=== PATIENT | female | born 1950 | race African-American/Black ===

== ENCOUNTER 2022-05-13 03:58 | Emergency (ER) | payer OTHER ==
[~2022-05-13] VITALS: Ht 170.2 cm; Wt 77.0 kg
[2022-05-13 06:18] LABS: BASOPHILS % 0.4 % (0.0-2.0); EOSINOPHILS % 0.5 % (0.0-5.0); HEMATOCRIT. 39.2 % (36.0-48.0); LYMPHOCYTES % 22.4 % (20.0-50.0); MEAN CORPUSCULAR HEMOGLOBIN 28.4 pg (28.0-32.0); MEAN CORPUSCULAR VOLUME 85.8 fL (81.0-99.0); MEAN PLATELET VOLUME 9.6 fl (7.4-10.4); MONOCYTES % 5.4 % (2.0-8.0); NEUTROPHILS % 71.3 % (40.0-76.0); PLATELET 169 x1000/uL (130-400); RED BLOOD CELL COUNT 4.57 mill/uL (4.2-5.4); RED CELL DISTRIBUTION WIDTH 13.6 % (11.6-14.6)
[2022-05-13 06:26] LABS: CHLORIDE 107 mEq/L (98-107)
[2022-05-13 06:27] LABS: PROTHROMBIN TIME 10.9 sec (9.6-11.0)
[2022-05-13 06:42] LABS: ETHANOL BLOOD < 10 mg/dL
[2022-05-13] MEDS ORDERED: IOHEXOL-350 100 ML BOTTLE ONE (07:45)
[2022-05-13 07:58] LABS: CLARITY URINE CLEAR (CLEAR); COLOR URINE YELLOW (YELLOW); KETONES URINE NEGATIVE (NEGATIVE); LEUKOCYTE ESTERASE URINE NEGATIVE (NEGATIVE); NITRITE URINE NEGATIVE (NEGATIVE); OCCULT BLOOD URINE NEGATIVE (NEGATIVE); PROTEIN URINE NEGATIVE (NEGATIVE); SPECIFIC GRAVITY URINE 1.007 (1.005-1.030); UROBILINOGEN URINE 0.2 E.U./dL (0.2-1.0)
[2022-05-13 08:24] LABS: *AMPHETAMINES SCREEN URINE NEGATIVE (NEGATIVE); *BARBITURATES SCREEN URINE NEGATIVE (NEGATIVE); *BENZODIAZEPINES SCREEN URINE NEGATIVE (NEGATIVE); *COCAINE SCREEN URINE NEGATIVE (NEGATIVE); CANNABINOID URINE SCREEN NEGATIVE (NEGATIVE); METHADONE URINE SCREEN NEGATIVE (NEGATIVE); OPIATES URINE SCREEN NEGATIVE (NEGATIVE); PHENCYCLIDINE URINE SCREEN NEGATIVE (NEGATIVE)
[2022-05-13 08:30] VITALS: BP 157/79
[2022-05-13] MEDS ORDERED: DIAZEPAM 5 MG/ML 2ML CPJ IV ONE (09:00)
[2022-05-13] MEDS ORDERED: CLOPIDOGREL 75MG TABLET PO NR (09:15)
[2022-05-13] MEDS ORDERED: ASPIRIN 325MG EC TABLET PO NR (09:15)
[2022-05-13] MEDS ORDERED: MIDAZOLAM HCL 2 MG/2 ML VIAL IV ONE ×2 (09:15→10:00)
[2022-05-13] MEDS ORDERED: ATORVASTATIN CALCIUM 40MG TABLET PO NR (09:15)
[2022-05-13] MEDS ORDERED: BENZTROPINE MESYLATE 1 MG/ML 2ML VIAL IM ONE (12:30)
== END 2022-05-13 13:26 | disposition short-term general hospital (02) ==
LOC: ER 03:58
DX: R25.3 Fasciculation (principal); I10 Essential (primary) hypertension; F03.90 Unspecified dementia, unspecified severity, without behavioral disturbance, psychotic disturbance, mood disturbance, and anxiety; Z20.822 Contact with and (suspected) exposure to COVID-19
CPT/HCPCS: 36415; 70450; 70496; 80053; 80305; 80320; 81003; 82140; 83735; 84443; 84484; 85025; 85610; 87426; 93005; 96372; 96374; 96375; 96376; 99291; C9803; J0515; J2250; Q9967; G0480